=== PATIENT | male | born 1990 | race Caucasian/White ===

== ENCOUNTER → 2020-11-19 | Outpatient (CLI) | payer OTHER ==
[2020-11-19 10:56] LABS: BASOPHILS ABSOLUTE AUTO 0.07 K/mm3 (0.00-0.23); BASOPHILS PERCENT AUTO 1 % (0-2); EOSINOPHILS ABSOLUTE AUTO 0.24 K/mm3 (0.00-0.68); EOSINOPHILS PERCENT AUTO 4 % (0-6); Hematocrit 46.9 % (37.0-53.0); Hemoglobin 15.7 g/dL (13.5-17.5); IMMATURE GRAN ABSOLUTE AUTO 0.02 K/mm3 (0.00-0.10); IMMATURE GRAN PERCENT AUTO 0 % (0-1); LYMPHOCYTES ABSOLUTE AUTO 1.99 K/mm3 (0.84-5.20); LYMPHOCYTES PERCENT AUTO 30 % (21-46); MONOCYTES ABSOLUTE AUTO 0.52 K/mm3 (0.16-1.47); MONOCYTES PERCENT AUTO 8 % (4-13); Mean Corpuscular HGB 29.5 pg (26.0-34.0); Mean Corpuscular HGB Conc 33.5 g/dL (31.5-36.5); Mean Corpuscular Volume 88 fL (80-100); Mean Platelet Volume 10.7 fL (9.1-12.4); NEUTROPHILS ABSOLUTE AUTO 3.91 K/mm3 (1.96-9.15); NEUTROPHILS PERCENT AUTO 58 % (41-73); Platelet Count 243 K/mm3 (150-400); RDW Coefficient Variation 12.9 % (11.7-14.2); RDW Standard Deviation 41.6 fL (35.1-46.3); Red Blood Cell Count 5.32 M/mm3 (4.30-5.90); White Blood Cell Count 6.75 K/mm3 (4.00-11.30)
[2020-11-19 11:07] LABS: Alanine Aminotransfer (ALT/SGP 21 U/L (12-78); Alk Phos 117 U/L (40-126); Anion Gap 6 mmol/L (6-16); Aspartate Aminotrans (AST/SGOT 14 U/L (12-37); Bilirubin, Total 0.3 mg/dL (0.1-1.0); Blood Urea Nitrogen 12 mg/dL (8-24); CO2, Blood 32 mmol/L (21-32); Calcium, Blood 9.2 mg/dL (8.5-10.1); Chloride, Blood 102 mmol/L (98-108); Glomerular Filtration Rate >60 (60-); Glucose, Blood 98 mg/dL (70-99); Potassium, Blood 4.4 mmol/L (3.5-5.5); Sodium, Blood 140 mmol/L (136-145)
== END | disposition home or self-care (01) ==
LOC: LAB SHORT 10:52 → LAB 10:52
PROVIDERS: General Practice
DX: K62.5 Hemorrhage of anus and rectum (principal)
CPT/HCPCS: 80053; 85025

== ENCOUNTER → 2022-07-16 | Outpatient (CLI) | payer OTHER ==
[2022-07-16 12:31] LABS: BASOPHILS ABSOLUTE AUTO 0.09 K/mm3 (0.00-0.23); BASOPHILS PERCENT AUTO 1 % (0-2); EOSINOPHILS ABSOLUTE AUTO 0.08 K/mm3 (0.00-0.68); EOSINOPHILS PERCENT AUTO 1 % (0-6); Hemoglobin 9.4 g/dL (13.5-17.5); IMMATURE GRAN ABSOLUTE AUTO 0.02 K/mm3 (0.00-0.10); IMMATURE GRAN PERCENT AUTO 0 % (0-1); LYMPHOCYTES ABSOLUTE AUTO 1.96 K/mm3 (0.84-5.20); LYMPHOCYTES PERCENT AUTO 22 % (21-46); MONOCYTES ABSOLUTE AUTO 0.65 K/mm3 (0.16-1.47); MONOCYTES PERCENT AUTO 7 % (4-13); Mean Corpuscular HGB 15.6 pg (26.0-34.0); Mean Corpuscular HGB Conc 26.1 g/dL (31.5-36.5); Mean Corpuscular Volume 60 fL (80-100); NEUTROPHILS ABSOLUTE AUTO 6.23 K/mm3 (1.96-9.15); NEUTROPHILS PERCENT AUTO 69 % (41-73); Platelet Count 446 K/mm3 (150-400); RDW Coefficient Variation 21.2 % (11.7-14.2); RDW Standard Deviation 41.2 fL (35.1-46.3); Red Blood Cell Count 6.02 M/mm3 (4.30-5.90); White Blood Cell Count 9.03 K/mm3 (4.00-11.30)
[2022-07-16 12:41] LABS: Albumin, Blood 4.2 g/dL (3.4-5.0); Albumin/Globulin Ratio 0.9 (0.8-1.8); Bilirubin, Total 0.4 mg/dL (0.1-1.0); Bun/Creatinine Ratio 9.2 (12.0-20.0); Calcium, Blood 9.2 mg/dL (8.5-10.1); Creatinine, Blood 0.87 mg/dL (0.60-1.20); Globulin, Blood 4.7 g/dL (2.2-4.0); Potassium, Blood 3.7 mmol/L (3.5-5.5); Total Protein, Blood 8.9 g/dL (6.4-8.2)
[2022-07-16 12:42] LABS: Mean Platelet Volume 9.5 fL (9.1-12.4)
== END | disposition home or self-care (01) ==
LOC: LAB SHORT 12:26
PROVIDERS: Family Medicine
DX: D50.9 Iron deficiency anemia, unspecified (principal); R42 Dizziness and giddiness; R51.9 Headache, unspecified
CPT/HCPCS: 80053; 82728; 85025

== ENCOUNTER → 2024-04-04 | Outpatient (CLI) | payer OTHER | LOC: LAB 14:15 → LAB SHORT 14:15 | DX: R33.9 Retention of urine, unspecified (principal) | CPT/HCPCS: 87086 ==

== ENCOUNTER 2024-05-02 11:54 | Observation (INO) | payer OTHER ==
[~2024-05-02] VITALS: Ht 170.2 cm; Wt 69.8 kg
[2024-05-02] MEDS ORDERED: Ketorolac Tromethamine 15mg Vial IV ONE (12:25)
[2024-05-02 12:39] LABS: BASOPHILS ABSOLUTE AUTO 0.08 K/mm3 (0.00-0.23); BASOPHILS PERCENT AUTO 1 % (0-2); EOSINOPHILS ABSOLUTE AUTO 0.03 K/mm3 (0.00-0.68); EOSINOPHILS PERCENT AUTO 0 % (0-6); Hematocrit 34.6 % (37.0-53.0); Hemoglobin 10.4 g/dL (13.5-17.5); IMMATURE GRAN ABSOLUTE AUTO 0.15 K/mm3 (0.00-0.10); IMMATURE GRAN PERCENT AUTO 1 % (0-1); LYMPHOCYTES ABSOLUTE AUTO 2.13 K/mm3 (0.84-5.20); LYMPHOCYTES PERCENT AUTO 14 % (21-46); MONOCYTES ABSOLUTE AUTO 1.73 K/mm3 (0.16-1.47); MONOCYTES PERCENT AUTO 12 % (4-13); Mean Corpuscular HGB 21.8 pg (26.0-34.0); Mean Corpuscular HGB Conc 30.1 g/dL (31.5-36.5); Mean Corpuscular Volume 73 fL (80-100); Mean Platelet Volume 9.4 fL (9.1-12.4); NEUTROPHILS ABSOLUTE AUTO 10.86 K/mm3 (1.96-9.15); NEUTROPHILS PERCENT AUTO 73 % (41-73); Platelet Count 502 K/mm3 (150-400); RDW Coefficient Variation 16.6 % (11.7-14.2); RDW Standard Deviation 43.1 fL (35.1-46.3); Red Blood Cell Count 4.77 M/mm3 (4.30-5.90); White Blood Cell Count 14.98 K/mm3 (4.00-11.30)
[2024-05-02 13:03] LABS: Albumin, Blood 2.2 g/dL (3.4-5.0); Albumin/Globulin Ratio 0.5 (0.8-1.8); Bilirubin, Total 0.5 mg/dL (0.1-1.0); Bun/Creatinine Ratio 7.5 (12.0-20.0); Calcium, Blood 8.3 mg/dL (8.5-10.1); Creatinine, Blood 1.06 mg/dL (0.60-1.20); Globulin, Blood 4.8 g/dL (2.2-4.0); Potassium, Blood 3.9 mmol/L (3.5-5.5)
[2024-05-02 13:11] LABS: Free Thyroxine 1.34 ng/dL (0.70-1.60); Thyroid Stimulating Hormone 1.76 uIU/mL (0.360-4.800)
[2024-05-02] MEDS ORDERED: Piperacillin/Tazobactam Sod 3.375 GM in NS 100 ML IV ONE (17:00)
[2024-05-02] MEDS ORDERED: NS 1,000 ML IV SCH ×2 (17:00→17:25)
[2024-05-02] MEDS ORDERED: Ondansetron HCl 2 MG / ML 2ML Vial IV PRN (18:35)
[2024-05-02] MEDS ORDERED: OxyCODONE 5 mg/Acetamin 325 mg TABLET PO PRN (18:35)
[2024-05-02] MEDS ORDERED: FLU VACC TS2024-25(6MOS UP)/PF 45 MCG/0.5 ML SYRINGE IM ONE (18:35)
[2024-05-02] MEDS ORDERED: FentaNYL Citrate 50 MCG/ML 2 ML Injection IV PRN (18:35)
[2024-05-02] MEDS ORDERED: Lactated Ringer's 1,000 ML IV SCH (19:00)
[2024-05-02] MEDS ORDERED: Docusate Sodium 100 MG Cap PO SCH (21:00)
[2024-05-02 21:49] VITALS: BP 140/106
[2024-05-03] VITALS (20 sets, daily range): BP systolic 81–128; BP diastolic 50–105
[2024-05-03] MEDS ORDERED: Piperacillin/Tazobactam Sod 3.375 GM in NS 100 ML IV SCH (05:01)
[2024-05-03] MEDS ORDERED: NS 250 ML IV PRN (05:05)
[2024-05-03 05:30] LABS: Hemoglobin 8.7 g/dL (13.5-17.5); Mean Corpuscular HGB 21.9 pg (26.0-34.0); Mean Corpuscular Volume 73 fL (80-100); Mean Platelet Volume 9.6 fL (9.1-12.4); Platelet Count 417 K/mm3 (150-400); RDW Coefficient Variation 16.7 % (11.7-14.2); RDW Standard Deviation 43.5 fL (35.1-46.3); Red Blood Cell Count 3.98 M/mm3 (4.30-5.90)
--- NOTE | 2024-05-03 05:39 | NUR ---
SHIFT SUMMARY PT ER ADMIT FOR PERIRECTAL ABCESS, PLAN IS FOR POSSIBLE PROCEDURE TODAY. PT WAS FEBRILE UPON ADMISSION WITH A TEMP OF 102 ORALLY, TYLENOL GIVEN FOR PAIN AND FEVER UPON ADMIT WITH AFFECT. PT ALSO HAD A LIQUID INCONTINENT STOOL UPON ADMISSON. ABCESS IS NOT DRAINING. PT RECEIVED FLUIDS AND IV ANTIBIOTICS IN ER. PT HAD IV FLUIDS ORDERED UPON ADMIT, PT INITALLY REFUSED LR AND REPORTED TO ME THAT HE HAD ALREADY RECEIVED ENOUGH FLUIDS IN ER. PT LATER AGREED TO RECEIVE FLUIDS THIS AM, LR INFUSING PER ORDERS. CLEAR LIQUID DIET UNTIL 0600. PT INDEPENDENT IN THE ROOM. BED IN LOWEST POSITION, CALL LIGHT WITHIN REACH.
[2024-05-03 05:52] LABS: Bun/Creatinine Ratio 7.8 (12.0-20.0); Calcium, Blood 7.9 mg/dL (8.5-10.1); Creatinine, Blood 0.9 mg/dL (0.60-1.20); Potassium, Blood 3.7 mmol/L (3.5-5.5)
[2024-05-03 05:54] LABS: BAND PERCENT MAN 11 % (0-8); BASOPHILS PERCENT MAN 0 % (0-2); EOSINOPHILS PERCENT MAN 0 % (0-6); LYMPHOCYTES ABSOLUTE MAN 1.79 K/mm3 (0.84-5.20); LYMPHOCYTES PERCENT MAN 14 % (21-46); MONOCYTES ABSOLUTE MAN 1.28 K/mm3 (0.16-1.47); MONOCYTES PERCENT MAN 10 % (4-13); NEUTROPHILS ABSOLUTE MAN 9.72 K/mm3 (1.96-9.15); SEG NEUTROPHILS PERCENT MAN 65 % (41-73); TOTAL CELLS COUNTED 100
[2024-05-03 08:34] LABS: Percent Saturation 3.8 % (20.0-50.0)
--- NOTE | 2024-05-03 09:23 | NUR ---
NOTIFIED DR RK SIMONS IN 120S-130S. NOT REPORTING ANY SOB OR CP. RESTING IN BED. CALL LIGHT IN REACH.
--- NOTE | 2024-05-03 09:58 | NUR ---
dr trent in to see pt.
--- NOTE | 2024-05-03 11:09 | NUR ---
DR BECKMAN IN TO SEE PT.
[2024-05-03] MEDS ORDERED: Lactated Ringer's 1,000 ML IV ONE (11:10)
--- NOTE | 2024-05-03 11:34 | NUR ---
PT TO SURGERY
[2024-05-03] MEDS ORDERED: Bupivacaine 0.5% HCl 5 MG/ML 30MLVIAL ONE (11:37)
[2024-05-03] MEDS ORDERED: Lidocaine HCl 2% 20 ML MDV ONE (11:52)
[2024-05-03] MEDS ORDERED: propofoL 20 ML IV ONE (11:52)
[2024-05-03] MEDS ORDERED: Midazolam HCl 1MG / ML 2ML Vial ONE (11:52)
[2024-05-03] MEDS ORDERED: FentaNYL Citrate 50 MCG/ML 2 ML Injection ONE (11:52)
[2024-05-03] MEDS ORDERED: Phenylephrine HCl 100 MCG/ML-NS 10MLSYR (1MG/10ML) ONE (11:57)
[2024-05-03] MEDS ORDERED: Ondansetron HCl 2 MG / ML 2ML Vial ONE (11:58)
[2024-05-03] MEDS ORDERED: Dexamethasone Sod Phos 10 MG/ML 1ML VIAL ONE (11:58)
[2024-05-03] MEDS ORDERED: Ketorolac Tromethamine 30mg Vial ONE (11:59)
[2024-05-03] MEDS ORDERED: HYDROmorphone HCl/Pf 1MG SYR ONE (12:07)
--- NOTE | 2024-05-03 12:15 | NUR ---
05/03/24 1215 Katerina Tamayo PT ON SCHEDULED ANTIBIOTICS
[2024-05-03] MEDS ORDERED: HYDROcodone 5-APAP 325 TAB PO PRN (12:35)
--- NOTE | 2024-05-03 13:41 | NUR ---
PT ARRIVED BACK TO ROOM FROM PACU TRANSFERRED PT FROM [facility] TO BED. VSS. PT AWAKE, TALKING ON PHONE. PROVIDED JELLO, CRACKERS, AND WATER. CALL LIGHT IN REACH.
[2024-05-03] MEDS ORDERED: Iron Dextran 50 MG / ML 2ML Vial IV ONE (13:55)
[2024-05-03] MEDS ORDERED: Iron Dextran 975 MG in NS 250 ML IV ONE (15:30)
--- NOTE | 2024-05-03 15:30 | NUR ---
pt sweating and bp 93/64. notified pharmacy and dr christian. cancelling order for infed. dr christian gave phone order for 500 cc bolus of ns now.
[2024-05-03] MEDS ORDERED: NS 500 ML IV ONE (15:35)
[2024-05-03] MEDS ORDERED: AMOCLA875 PO (15:50)
[2024-05-03] MEDS ORDERED: HYDR1TAB94 PO (15:51)
[2024-05-03] MEDS ORDERED: FERSU300 PO (15:52)
[2024-05-03] MEDS ORDERED: Amoxicillin/Clavulanate K 875 MG Tab PO SCH (17:00)
--- NOTE | 2024-05-03 17:18 | NUR ---
discharged VSS. IV DC'D, CATHETER INTACT. PT WANTED TO DC HOME. ADMINISTERED FIRST DOSE OF AUGMENTIN PER ORDERS. REVIEWED DC INSTRUCTIONS W/PT; VERBALIZED UNDERSTANDING. PROVIDED DRESSING CHANGES. PT LEFT UNIT IN WC W/POSSESSIONS AND DC PAPERWORK IN HAND TO MEET RIDE OUTSIDE.
== END 2024-05-03 17:05 | disposition home or self-care (01) ==
LOC: ER 11:54 → SURS 18:33 → ERHOLD 18:33 → SURS 22:22
PROVIDERS: Internal Medicine; Physician Assistant; Surgery; ADMIT Internal Medicine
DX: A41.9 Sepsis, unspecified organism (principal); K61.1 Rectal abscess; D50.9 Iron deficiency anemia, unspecified
CPT/HCPCS: 36415; 72193; 80048; 80053; 82728; 83540; 83550; 83605; 84439; 84443; 85025; 87040; 87070; 87075; 87205; 96365-59; 96375; 96376; 99284-25; A9270; G0378; J1100; J1171; J1750; J1885; J2250; J2371; J2405; J2543; J2704; J3010; J7030; J7040; J7050; J7120; Q9967

== ENCOUNTER 2024-05-05 09:06 | Emergency (ER) | payer OTHER ==
[~2024-05-05] VITALS: Ht 180.3 cm; Wt 81.7 kg
[~2024-05-05 09:06] MED LIST: AMOCLA875 PO; FERSU300 PO; HYDR1TAB94 PO
[2024-05-05 11:22] VITALS: BP 137/110
[2024-05-05] MEDS ORDERED: Amoxicillin/Clavulanate K 875 MG Tab PO ONE (12:50)
[2024-05-05] MEDS ORDERED: OxyCODONE HCL 5 MG TAB PO ONE (12:50)
== END 2024-05-05 14:00 | disposition home or self-care (01) ==
LOC: ER 09:06
DX: Z03.89 Encounter for observation for other suspected diseases and conditions ruled out (principal); Z91.048 Other nonmedicinal substance allergy status; Z79.2 Long term (current) use of antibiotics; Z79.899 Other long term (current) drug therapy; Z71.1 Person with feared health complaint in whom no diagnosis is made
CPT/HCPCS: 99283; A9270